=== PATIENT | female | born 2000 | race Two or more races ===

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

== ENCOUNTER 2020-01-12 14:24 | Emergency (ER) | payer OTHER, MEDICAID ==
[~2020-01-12] VITALS: Ht 165.1 cm; Wt 54.4 kg
[2020-01-12 14:47] VITALS: BP 115/76
[2020-01-12 16:14] LABS: Urine Bacteria FEW /hpf (None Seen); Urine Blood 1+ /uL (Negative); Urine Mucus FEW (None Seen); Urine WBC 2 /hpf (0 - 5)
[2020-01-12 16:15] LABS: Urine Specific Gravity > 1.050 (1.001-1.035)
[2020-01-12] MEDS ORDERED: SODIUM CHLORIDE 0.9% 1,000 ML IV ONE (16:45)
[2020-01-12] MEDS ORDERED: ONDANSETRON ODT 4 MG TAB PO ONE (16:45)
== END 2020-01-12 18:17 | disposition home or self-care (01) ==
LOC: ER 14:24
DX: J06.9 Acute upper respiratory infection, unspecified (principal); E86.0 Dehydration; Z20.828 Contact with and (suspected) exposure to other viral communicable diseases
CPT/HCPCS: 36415; 71045; 81001; 87426; 96360; 99284; J7030; Q0162

== ENCOUNTER 2020-06-15 22:45 | Emergency (ER) | payer MEDICAID, OTHER ==
[~2020-06-15] VITALS: Ht 165.1 cm; Wt 61.2 kg
[2020-06-15 23:30] VITALS: BP 122/80
== END 2020-06-16 00:53 | disposition home or self-care (01) ==
LOC: EDBD 22:45 → ER 22:48
DX: S20.211A Contusion of right front wall of thorax, initial encounter (principal); S00.93XA Contusion of unspecified part of head, initial encounter; F12.10 Cannabis abuse, uncomplicated; T74.11XA Adult physical abuse, confirmed, initial encounter; Y08.89XA Assault by other specified means, initial encounter; Y93.89 Activity, other specified; Y92.89 Other specified places as the place of occurrence of the external cause; Y99.8 Other external cause status
CPT/HCPCS: 71101; 81025

== ENCOUNTER 2021-04-17 08:49 | Emergency (ER) | payer MEDICAID ==
[~2021-04-17] VITALS: Ht 167.6 cm; Wt 52.2 kg
[2021-04-17 09:24] LABS: Urine Bacteria NONE SEEN /hpf (None Seen); Urine Blood 3+ /uL (Negative); Urine WBC 371 /hpf (0 - 5); Urine WBC Clumps PRESENT /hpf (None Seen)
[2021-04-17 09:48] LABS: Urine Specific Gravity 1.027 (1.001-1.035)
[2021-04-17 11:08] LABS: Basophils # (auto) 0 10 ^3/uL (0-0.2); Basophils % (auto) 0.6 % (0.0-2.0); Eosinophils # (auto) 0.2 10 ^3/uL (0-0.8); Eosinophils % (auto) 2.9 % (0.0-7.0); Hematocrit 33.2 % (36.0-46.0); Lymphocytes # (auto) 1.2 10 ^3/uL (0.4-5.4); Lymphocytes % (auto) 16.2 % (10.0-50.0); Mean Corpuscular Hemoglobin 28.2 pg (28.0-32.0); Mean Corpuscular Hgb Conc. 33.2 g/dL (32.0-36.0); Monocytes # (auto) 0.3 10 ^3/uL (0-1.3); Monocytes % (auto) 4.4 % (0.0-12.0); Neutrophils # (auto) 5.6 10 ^3/uL (1.6-8.6); Neutrophils % (auto) 75.9 % (37.0-80.0); Red Blood Cells 3.91 10^6/uL (4.0-5.20); Red Cell Distribution Width 15.6 % (11.8-14.3); White Blood Cell 7.4 10^3/uL (4.4-10.8)
[2021-04-17 11:19] LABS: Albumin 3.7 g/dL (3.4-5.0); Calcium 8.6 mg/dL (8.5-10.1); Potassium 4.4 mmol/L (3.5-5.1)
[2021-04-17 11:22] LABS: BUN/Creatinine Ratio 14.5; Bilirubin, Total 0.4 mg/dL (0.2-1.0)
[2021-04-17] MEDS ORDERED: NITR-87 PO (15:13)
[2021-04-17 16:41] VITALS: BP 125/59
== END 2021-04-17 15:14 | disposition home or self-care (01) ==
LOC: ER 08:49
DX: N39.0 Urinary tract infection, site not specified (principal); N93.9 Abnormal uterine and vaginal bleeding, unspecified; Z86.2 Personal history of diseases of the blood and blood-forming organs and certain disorders involving the immune mechanism
CPT/HCPCS: 36415; 76830; 76856; 80053; 81001; 84702; 85025

== ENCOUNTER 2021-08-22 09:01 | Emergency (ER) | payer MEDICAID ==
[~2021-08-22] VITALS: Ht 165.1 cm; Wt 61.2 kg
[~2021-08-22 09:01] MED LIST: NITR-87 PO
[2021-08-22] MEDS ORDERED: ACETAMINOPHEN 325 MG TAB PO ONE ×2 (09:04→09:15)
[2021-08-22 10:18] VITALS: BP 125/79
[2021-08-22] MEDS ORDERED: cefTRIAXone SOD 1,000 MG VL IM ONE (10:45)
[2021-08-22] MEDS ORDERED: AZIT250T8 PO (10:47)
[2021-08-22] MEDS ORDERED: IBUP600T27 PO (10:47)
== END 2021-08-22 12:46 | disposition home or self-care (01) ==
LOC: ER 09:01 → EDBD 09:01 → EDUNIT# 09:01 → ER 10:57
DX: J03.90 Acute tonsillitis, unspecified (principal); J20.9 Acute bronchitis, unspecified; Z86.2 Personal history of diseases of the blood and blood-forming organs and certain disorders involving the immune mechanism; Z79.1 Long term (current) use of non-steroidal anti-inflammatories (NSAID); Z79.2 Long term (current) use of antibiotics; Z79.899 Other long term (current) drug therapy
CPT/HCPCS: 71045; 96372; 99283; J0696

== ENCOUNTER 2022-04-12 08:56 | Emergency (ER) | payer MEDICAID ==
[~2022-04-12] VITALS: Ht 170.2 cm; Wt 52.3 kg
[~2022-04-12 08:56] MED LIST changes: +AZIT250T8 PO; +IBUP600T27 PO
[2022-04-12 09:15] VITALS: BP 123/83
[2022-04-12] MEDS ORDERED: SODIUM CHLORIDE 0.9% 1,000 ML IV ONE (09:30)
[2022-04-12] MEDS ORDERED: ONDANSETRON HCL 4 MG/2 ML VIAL IV ONE (09:30)
[2022-04-12] MEDS ORDERED: FAMOTIDINE (10MG/ML) 2ML VL IV ONE (09:30)
[2022-04-12 09:33] LABS: Urine Bacteria NONE SEEN /hpf (None Seen); Urine Blood 1+ /uL (Negative); Urine Budding Yeast OCCASIONAL /hpf (None Seen); Urine Specific Gravity 1.016 (1.001-1.035); Urine WBC 8 /hpf (0 - 5)
[2022-04-12 09:40] LABS: Basophils # (auto) 0 10 ^3/uL (0-0.2); Basophils % (auto) 0.3 % (0.0-2.0); Eosinophils # (auto) 0.1 10 ^3/uL (0-0.8); Eosinophils % (auto) 0.7 % (0.0-7.0); Hematocrit 37.9 % (36.0-46.0); Hemoglobin 12.7 g/dL (12.2-16.2); Lymphocytes # (auto) 0.9 10 ^3/uL (0.4-5.4); Lymphocytes % (auto) 12.3 % (10.0-50.0); Mean Corpuscular Hemoglobin 29.7 pg (28.0-32.0); Mean Corpuscular Hgb Conc. 33.5 g/dL (32.0-36.0); Mean Corpuscular Volume 88.6 fL (80.0-100.0); Monocytes # (auto) 0.2 10 ^3/uL (0-1.3); Monocytes % (auto) 2.7 % (0.0-12.0); Neutrophils # (auto) 6.5 10 ^3/uL (1.6-8.6); Nucleated Red Blood Cells % 0.3 %; Red Blood Cells 4.28 10^6/uL (4.0-5.20); Red Cell Distribution Width 14.5 % (11.8-14.3); White Blood Cell 7.7 10^3/uL (4.4-10.8)
[2022-04-12] MEDS ORDERED: KETOROLAC TROMETH 30 MG/ML 1ML VIAL IV ONE (09:45)
[2022-04-12] MEDS ORDERED: IOHEXOL 300 MG/ML 100ML BOTTLE IJ ONE (10:13)
[2022-04-12] MEDS ORDERED: cefTRIAXone SOD 1,000 MG VL IM ONE (10:15)
[2022-04-12] MEDS ORDERED: cefTRIAXone 1GM/50ML D5W 50 ML IV ONE (10:15)
[2022-04-12 10:31] LABS: Calcium 8.7 mg/dL (8.5-10.1); Potassium 3.4 mmol/L (3.5-5.1)
[2022-04-12 10:33] LABS: Albumin 3.8 g/dL (3.4-5.0); BUN/Creatinine Ratio 11.9
[2022-04-12 10:36] LABS: Bilirubin, Total 0.4 mg/dL (0.2-1.0); Total Protein 7.4 g/dL (6.4-8.2)
[2022-04-12] MEDS ORDERED: ONDA-144 PO (11:26)
[2022-04-12] MEDS ORDERED: DOXY-286 PO (11:26)
[2022-04-12] MEDS ORDERED: HYDR50CA PO (11:26)
[2022-04-12] MEDS ORDERED: EPIN0.3I27 IJ (15:22)
[2022-04-12] MEDS ORDERED: PRED20TA2 PO (15:22)
== END 2022-04-12 11:50 | disposition home or self-care (01) ==
LOC: EDBD 08:56 → ER 08:56
DX: K52.9 Noninfective gastroenteritis and colitis, unspecified (principal); N39.0 Urinary tract infection, site not specified; N73.9 Female pelvic inflammatory disease, unspecified; F12.10 Cannabis abuse, uncomplicated; Z32.02 Encounter for pregnancy test, result negative
CPT/HCPCS: 36415; 74177; 80053; 81001; 81025; 83690; 85025; 96361; 96372; 96374; 96375; 99285; J0696; J1885; J2405; J3490; J7030; Q9967

== ENCOUNTER 2022-04-12 12:55 | Emergency (ER) | payer MEDICAID ==
[~2022-04-12 12:55] MED LIST changes: +DOXY-286 PO; +HYDR50CA PO; +ONDA-144 PO
[2022-04-12] MEDS ORDERED: methylPREDNISolone SOD SUCC 125 MG/2 ML VL IV ONE (13:15)
[2022-04-12] MEDS ORDERED: diphenhdrAMINE HCL 50 MG/1 ML VL IV ONE (13:15)
[2022-04-12] MEDS ORDERED: FAMOTIDINE (10MG/ML) 2ML VL IV ONE (13:15)
[2022-04-12] MEDS ORDERED: PRED20TA2 PO (15:22)
[2022-04-12] MEDS ORDERED: EPIN0.3I27 IJ (15:22)
== END 2022-04-12 15:41 | disposition left against medical advice (07) ==
LOC: ER 12:55
DX: T78.40XA Allergy, unspecified, initial encounter (principal); F12.10 Cannabis abuse, uncomplicated; R94.31 Abnormal electrocardiogram [ECG] [EKG]; Z88.6 Allergy status to analgesic agent; X58.XXXA Exposure to other specified factors, initial encounter
CPT/HCPCS: 93005; 96374; 96375; 99284; J1200; J2930; J3490